=== PATIENT | female | born 1975 | race Caucasian/White ===

== ENCOUNTER 2016-05-05 18:53 | Emergency (ER) | payer BC ==
[~2016-05-05] VITALS: Ht 167.6 cm; Wt 72.6 kg
[2016-05-05] MEDS ORDERED: traMADol 50mg tab ORAL ONE (19:30)
[2016-05-05 20:05] LABS: APPEARANCE,URINE SLIGHTLY CLOUDY; KETONES,URINE NEGATIVE (NEGATIVE); LEUKOCYTE ESTERASE ,URINE 3+ (NEGATIVE); NITRITE,URINE NEGATIVE (NEGATIVE); PH,URINE 6.5 (4.5-8.0); PROTEIN,URINE 2+ (NEGATIVE); UROBILINOGEN,URINE NORMAL MG/DL (0.0-1.0)
[2016-05-05 20:13] LABS: SQUAMOUS EPITHELIAL CELL,UR FEW /LPF (NONE/OCC); WBC,URINE TNTC /HPF (0 - 2)
[2016-05-05 20:14] LABS: BACTERIA,URINE MODERATE /HPF
[2016-05-05] MEDS ORDERED: cefTRIAXone 1 GM in NS 55 ML IVPB ONE (20:15)
[2016-05-05] MEDS ORDERED: Ketorolac 30mg Inj IV ONE (20:30)
[2016-05-05] MEDS ORDERED: Tubing IV Cassette IV ONE (20:34)
[2016-05-05 20:51] LABS: MEAN CORPUSCULAR HGB CONC 32.1 G/DL (32.0-36.0); MEAN CORPUSCULAR VOLUME 81 FL (80-99); MEAN PLATELET VOLUME 8.4 FL (6.5-10.1); PLATELET COUNT 222 K/UL (150-450); RED BLOOD COUNT 6.08 M/UL (4.20-5.40); RED CELL DISTRIBUTION WIDTH 12.5 % (11.6-14.8); WHITE BLOOD COUNT 19.3 K/UL (4.8-10.8)
[2016-05-05 20:54] LABS: BASOPHILS % (AUTO) 0.8 % (0.0-2.0); EOSINOPHILS % (AUTO) 1.9 % (0.0-3.0); LYMPHOCYTES % (AUTO) 22.5 % (20.0-45.0); MONOCYTES % (AUTO) 6.9 % (1.0-10.0)
[2016-05-05 21:00] VITALS: BP 135/80
[2016-05-05 21:08] LABS: ALANINE AMINOTRANSFERASE 19 U/L (3-33); ALBUMIN/GLOBULIN RATIO 1.7 (1.0-2.7); ANION GAP 20 (5-15); ASPARTATE AMINO TRANSFERASE 13 U/L (5-40); CALCIUM 9.2 mg/dL (8.6-10.2); CARBON DIOXIDE 23 mEQ/L (20-30); CHLORIDE 97 mEQ/L (98-107); CREATININE 0.6 mg/dL (0.5-0.9); GLOMERULAR FILTRATION RATE > 60 mL/min (>60); HEMOLYSIS 10; POTASSIUM 3.9 mEQ/L (3.4-4.9); SODIUM 140 mEQ/L (135-145); TOTAL PROTEIN 7.3 g/dL (6.6-8.7)
[2016-05-05] MEDS ORDERED: CEPHALEXIN500 MG ORAL (21:32)
[2016-05-05 21:39] VITALS: BP 135/80
--- NOTE | 2016-05-05 22:21 | Emergency Room Report ---
History of Present Illness General Chief Complaint: Back Pain-No Injury Source: Patient Present Illness [facility] The patient is a 41-year-old female presenting with dysuria and flank pain. The patient states that she first noticed dysuria 3 days prior and then developed right lower back pain today. This pain is described as a 10/10 sharp sensation it is worse with movement. No radiating pain. The patient had a urinalysis done 2 days prior which was unremarkable. The patient has not been on any antibiotics. Patient denies any vaginal discharge or hematuria. Patient denies any other symptoms including N, V, F, chills, foul vaginal ordor Allergies: Coded Allergies: POLYESTER FIBERS (Verified Allergy, Unknown, 05/05/16) Patient History Past Medical History: see triage record Pertinent Family History: none Last Menstrual Period: 04/28/16 Now: No Reviewed Nursing Documentation: PMH: Agreed, PSxH: Agreed Nursing Documentation-PM Past Medical History: No History, Except For Hx Hypertension: Yes Review of Systems All Other Systems: negative except mentioned in HPI Physical Exam Vital Signs Date Time Temp Pulse Resp B/P Pulse Ox O2 Delivery O2 Flow Rate FiO2 05/05/16 19:10 98.2 88 16 126/89 100 Room Air Sp02 EP Interpretation: reviewed, normal General Appearance: no apparent distress, alert, GCS 15, non-toxic Head: normocephalic, atraumatic Eyes: bilateral eye PERRL, bilateral eye normal inspection ENT: hearing grossly normal, normal pharynx, no angioedema, normal voice Neck: full range of motion, supple/symm/no masses Gastrointestinal: normal bowel sounds, non tender, soft, no mass, non-distended , no guarding, no rebound Genitourinary: CVA tenderness (R), CVA tenderness (L) Musculoskeletal: back normal, gait/station normal, normal range of motion, non- tender Neurologic: alert, oriented x3, responsive, motor strength/tone normal, sensory intact, speech normal Psychiatric: judgement/insight normal, memory normal, mood/affect normal, no suicidal/homicidal ideation Skin: normal color, no rash, warm/dry, well hydrated Lymphatic: no adenopathy Medical Decision Making PA Attestation Dr. Robledo is my supervising physician. Patient management was discussed with my supervising physician Diagnostic Impression: Primary Impression: Pyelonephritis ER Course The patient is a 41-year-old female presenting with dysuria and flank pain Differential diagnosis considered but not limited to: UTI, vaginitis, pyelonephritis, PID, PE: afebrile. Abd is soft. TTP over suprapubic region + bilat flank pain CBC shows leukocytosis. CMP unremarkable. UA: cloudy, TNTC WBCs, moderate bacteria. Neg preg Pt given IV fluids, IV toradol, IV rocephin, and tramadol. Pain has decreased. The patient will be discharged home with prescription for Keflex and will follow up with PMD. ER precautions are given Laboratory Tests Test 05/05/16 19:21 05/05/16 20:30 Urine Color Pale yellow Urine Appearance Slightly cloudy Urine pH 6.5 (4.5-8.0) Urine Specific [place] 1.010 (1.005-1.035) Urine Protein 2+ (NEGATIVE) H Urine Glucose (UA) Negative (NEGATIVE) Urine Ketones Negative (NEGATIVE) Urine Occult Blood 5+ (NEGATIVE) H Urine Nitrite Negative (NEGATIVE) Urine Bilirubin Negative (NEGATIVE) Urine Urobilinogen Normal MG/DL (0.0-1.0) Urine Leukocyte Esterase 3+ (NEGATIVE) H Urine RBC 5-10 /HPF (0 - 2) H Urine WBC Tntc /HPF (0 - 2) H Urine Squamous Epithelial Cells Few /LPF (NONE/OCC) Urine Bacteria Moderate /HPF (NONE) H Urine HCG, Qualitative Negative White Blood Count 19.3 K/UL (4.8-10.8) H Red Blood Count 6.08 M/UL (4.20-5.40) H Hemoglobin 15.8 G/DL (12.0-16.0) Hematocrit 49.3 % (37.0-47.0) H Mean Corpuscular Volume 81 FL (80-99) Mean Corpuscular Hemoglobin 26.0 PG (27.0-31.0) L Mean Corpuscular Hemoglobin Concent 32.1 G/DL (32.0-36.0) Red Cell Distribution Width 12.5 % (11.6-14.8) Platelet Count 222 K/UL (150-450) Mean Platelet Volume 8.4 FL (6.5-10.1) Neutrophils (%) (Auto) 68.0 % (45.0-75.0) Lymphocytes (%) (Auto) 22.5 % (20.0-45.0) Monocytes (%) (Auto) 6.9 % (1.0-10.0) Eosinophils (%) (Auto) 1.9 % (0.0-3.0) Basophils (%) (Auto) 0.8 % (0.0-2.0) Sodium Level 140 mEQ/L (135-145) Potassium Level 3.9 mEQ/L (3.4-4.9) Chloride Level 97 mEQ/L (98-107) L Carbon Dioxide Level 23 mEQ/L (20-30) Anion Gap 20 (5-15) H Blood Urea Nitrogen 15 mg/dL (7-23) Creatinine 0.6 mg/dL (0.5-0.9) Estimate Glomerular Filtration Rate > 60 mL/min (>60) Glucose Level 90 mg/dL (74-106) Calcium Level 9.2 mg/dL (8.6-10.2) Total Bilirubin < 0.2 mg/dL (0.0-1.2) Aspartate Amino Transferase (AST) 13 U/L (5-40) Alanine Aminotransferase (ALT) 19 U/L (3-33) Alkaline Phosphatase 59 U/L (35-104) Total Protein 7.3 g/dL (6.6-8.7) Albumin 4.6 g/dL (3.5-5.2) Globulin 2.7 g/dL Albumin/Globulin Ratio 1.7 (1.0-2.7) Lab Results Impression CBC shows leukocytosis. CMP unremarkable. UA: cloudy, TNTC WBCs, moderate bacteria. Neg preg Last Vital Signs Date Time Temp Pulse Resp B/P Pulse Ox O2 Delivery O2 Flow Rate FiO2 05/05/16 21:39 98.2 90 23 135/80 99 Room Air Status: improved Disposition: HOME, SELF-CARE Condition: Improved Scripts Cephalexin* (KEFLEX*) 500 Mg Capsule 500 MG ORAL EVERY 12 HOURS, #20 CAP 0 Refills Prov: KEVIN WOODRUFF P.Mitul. 05/05/16 Patient Instructions: Pyelonephritis, Adult Additional Instructions: I discussed my findings with the patient. All questions and concerns have been answered. Treatment and medication compliance have been addressed. I advised the patient that they need to follow up with PMD in 3-5 days. Return to ED if symptoms worsen, new symptoms arise, or if needed for any reason. Patient verbalized understanding of discharge instructions. KEVIN WOODRUFF May 05, 2016 22:21
== END 2016-05-05 21:41 | disposition home or self-care (01) ==
LOC: EMR 19:20
DX: N12 Tubulo-interstitial nephritis, not specified as acute or chronic (principal)
CPT/HCPCS: 36415; 80053; 81003; 81025; 85025; 87086; 87181; 96374; 96375; 99284; J0696; J1885